=== PATIENT | male | born 1980 | race African-American/Black ===

== ENCOUNTER 2016-12-20 10:52 | Inpatient (IN) | payer BC, OTHER ==
[~2016-12-20] VITALS: Ht 185.4 cm; Wt 110.2 kg
[~2016-12-20 10:52] MED LIST: ANCEF 1 GM/50 ML D5W IV ONE
[2016-12-20 11:50] VITALS: BP 121/85
--- NOTE | 2016-12-20 11:50 | NUR ---
DIRECT ADMIT FROM DAY SURGERY.PT IS ALERT AND ORIENTED X4.VERBALLY RESPONSIVE.PT AMBULATES WITH CRUTCHES NWB ON HIS LLE.RESPIRATIONS NON LABORED IN ROOM AIR.ACCOMPANIED BY HIS .IV H/L STARTED TO LFA #22.STARTED ADMINISTERING ANCEF 1GM IV ATB.
[2016-12-20 12:00] VITALS: BP 121/85
[2016-12-20] MEDS ORDERED: IV SET PRIMARY PUMP SET 1 EA INFUS.SET MC ONE (12:09)
[2016-12-20] MEDS ORDERED: KETOROLAC TROMETHAMINE INJ 30 MG/ML VIAL ONE (12:46)
[2016-12-20] MEDS ORDERED: BACITRACIN 50000 UNITS/VIAL ONE ×2 (12:46→13:22)
[2016-12-20] MEDS ORDERED: BUPIVACAINE MPF 0.5% W/EPI INJ 30 ML VIAL ONE (12:46)
--- NOTE | 2016-12-20 12:50 | NUR ---
PT WAS PICKED UP FOR ORIF OF LT PATELLA SX.WITH STABLE V/S.
[2016-12-20] MEDS ORDERED: FENTANYL PF 100MCG/2ML AMPUL ONE (12:52)
[2016-12-20] MEDS ORDERED: MIDAZOLAM HCL 2 MG/2ML VIAL ONE ×2 (12:52→12:53)
[2016-12-20 12:53] LABS: BASOPHILS % (AUTO) 0.5 % (0.0-2.0); EOSINOPHILS # (AUTO) 0.1 /CMM (0.0-0.7); EOSINOPHILS % (AUTO) 1.1 % (0.0-6.0); HEMATOCRIT 44 % (39-51); HEMOGLOBIN 14.6 g/dL (13.5-17.5); LYMPHOCYTES # (AUTO) 1.8 /CMM (0.8-4.8); LYMPHOCYTES % (AUTO) 32.4 % (20.0-44.0); MEAN CORPUSCULAR HEMOGLOBIN 30 PG (26.0-33.0); MEAN CORPUSCULAR HGB CONC 33 g/dl (31.0-36.0); MEAN CORPUSCULAR VOLUME 89 fL (80-96); MONOCYTES # (AUTO) 0.4 /CMM (0.1-1.30); MONOCYTES % (AUTO) 7.8 % (2.0-12.0); NEUTROPHILS # (AUTO) 3.2 /CMM (1.8-8.9); NEUTROPHILS % (AUTO) 58.2 % (43.0-81.0); PLATELET COUNT (AUTO) 233 /CMM (150-450); RED BLOOD CELL COUNT(AUTO) 4.96 MIL/uL (4.5-6.0); WHITE BLOOD COUNT (AUTO) 5.6 K/uL (4.3-11.0)
[2016-12-20 13:09] LABS: ALBUMIN 3.5 g/dL (3.4-5.0); CALCIUM, SERUM 8.2 mg/dL (8.5-10.1); CREATININE 1.1 mg/dL (0.6-1.3); POTASSIUM 3.9 mmol/L (3.5-5.1); TOTAL PROTEIN, SERUM 7.4 g/dL (6.4-8.2)
[2016-12-20 13:11] LABS: INR 1.01 (0.87-1.13); PROTHROMBIN TIME 10.8 SECS (9.5-12.7)
[2016-12-20] MEDS ORDERED: ANESTHESIA TRAY IN PYXIS 1 EA TRAY MC ONE ×2 (14:48→15:35)
[2016-12-20 15:10] VITALS: BP 129/74
--- NOTE | 2016-12-20 15:10 | NUR ---
PT ARRIVED FROM [facility]. S/P ORIF OF LEFT PATELLAR WITH STABLE V/S.
[2016-12-20] MEDS ORDERED: NO HOME MEDS (15:28)
[2016-12-20 16:00] VITALS: BP 115/76
[2016-12-20] MEDS ORDERED: oxyCODONE/APAP (5/325 MG) 1 UDTAB TABLET PO PRN ×2 (16:00)
--- NOTE | 2016-12-20 16:00 | NUR ---
PT AND HIS WANTED TO GO HOME SAYING THAT DR HEADLEY TOLD THEM THAT PT CAN GO HOME TODAY AND THEY HAVE THE FOLLOW UP APPT ON 01/01/17 AND THE PRESCRIPTION FOR PAIN MEDICINE.NOTIFIED DR WEBB AND SHARIFA GOVEA WITH ORDERS TO DC PT HOME AND CARRIED OUT.
--- NOTE | 2016-12-20 17:50 | NUR ---
DISCHARGED PT HOME VIA PRIVATE CAR ACCOMPANIED BY HIS WITH STABLE V/S.
[2016-12-21] MEDS ORDERED: ASPIRIN 325 MG TABLET PO SCH (09:00)
== END 2016-12-20 17:50 | disposition home or self-care (01) | DRG 517 ==
LOC: DS 10:52 → MED 11:16
PROVIDERS: ADMIT Internal Medicine; ATTEND Family Medicine
PROC: 0QSF04Z Reposition Left Patella with Internal Fixation Device, Open Approach (ICD-10-PCS; principal; 2016-12-20 13:20)
DX: S82.032B Displaced transverse fracture of left patella, initial encounter for open fracture type I or II (principal); M94.20 Chondromalacia, unspecified site; Y92.39 Other specified sports and athletic area as the place of occurrence of the external cause; Y93.67 Activity, basketball; W18.39XA Other fall on same level, initial encounter
CPT/HCPCS: 36415; 73560-TC; 80053-TC; 85025-TC; 85610-TC; 85730-TC; J0690; J1100; J1885; J2250; J2405; J2704; J3010; J3490; J7060; Z7610